=== PATIENT | male | born 1965 | race Caucasian/White ===

== ENCOUNTER 2024-01-19 08:18 | Day surgery (SDC) | payer MEDICARE ==
[2024-01-16 17:07] VITALS: BMI 31.1
[2024-01-19] MEDS: IV FLUID CONTINUATION 1,000 ML IV ONE (08:36)
[2024-01-19 08:49] VITALS: TEMP 97
[2024-01-19] MEDS: LACTATED RINGERS 1,000 ML IV SCH (08:56)
[2024-01-19] MEDS ORDERED: LIDOCAINE 1% INJ 10MG/ML (20 ML MDV) ONE (09:17)
[2024-01-19] MEDS ORDERED: PROPOFOL 10 MG/ML 20 ML VIAL IV ONE (09:17)
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
--- NOTE | 2024-01-19 09:42 | P.OP ---
Date of Procedure: 01/19/24 Preoperative Diagnosis: Weight loss, abdominal pain, anorexia Postoperative Diagnosis: Large paraesophageal hiatal hernia Diverticulosis Procedure(s) Performed: EGD Anesthesia: MAC Surgeon: Elvis Dc Pathology: other (Antrum, esophagus) Condition: stable Disposition: PACU Description of Procedure: The patient was placed on the endoscopy table in the lateral position. He received IV sedation. The gas was placed oropharynx passed in the esophagus and stomach. The scope was placed through the pylorus. The first and second portion of the duodenum appeared normal. Scope was then brought back to the antrum this was minimal Flaim. A biopsy performed. Scope was then retroflexed the patient had a large paraesophageal hiatal hernia. The GE junction was at 37 cm. The distal esophagus was minimal Flaim. A biopsy performed. The proximal esophagus appeared normal. Coffey was withdrawn for the patient. Next digital rectal exam was performed. This revealed no abnormalities. Flexible colonoscope was then placed patient anus and passed throughout the entire colon. The ileocecal valve was visualized. The cecum, ascending and transverse colon appeared normal. In the descending sigmoid colon there is mild diverticular changes. The scope was then brought back to the rectum this appea red normal. Scope withdrawn for the p patient.
[2024-01-19 09:46] VITALS: RESP 14
[2024-01-19 10:10] VITALS: BP 96/68; PULSE 69
== END 2024-01-19 10:32 | disposition home or self-care (01) ==
LOC: ORWHC2ENDO 08:18
PROVIDERS: ATTEND Surgery
CPT/HCPCS: 43239; 45378; 88305

== ENCOUNTER 2024-02-15 09:45 | Day surgery (SDC) | payer MEDICARE ==
[2024-02-15 11:18] LABS: Basophils % (A) 0 %; Eosinophils # (A) 0.2 k/uL (0-0.7); Eosinophils % (A) 2 %; HCT 44.6 % (39.0-53.0); HGB 14.7 gm/dL (13.0-17.5); Lymphocytes # (A) 1.7 k/uL (1.0-4.8); Lymphocytes % (A) 18 %; MCH 30.4 pg (25.0-35.0); MCV 91.9 fL (80.0-100.0); Mean Platelet Volume 6.8; Monocytes # (A) 0.8 k/uL (0-1.0); Monocytes % (A) 8 %; Neutrophils # (A) 6.5 k/uL (1.3-7.7); Neutrophils % (A) 70 %; Platelet Count 345 k/uL (150-450); RBC 4.86 m/uL (4.30-5.90); RDW 12.9 % (11.5-15.5); WBC 9.4 k/uL (3.8-10.6)
[2024-02-15] MEDS: LACTATED RINGERS 1,000 ML IV SCH (11:30)
[2024-02-15] MEDS: ONDANSETRON 4 MG/2 ML VIAL IVP ONE (11:31)
[2024-02-15] MEDS: ACETAMINOPHEN TAB 500 MG TAB PO PRN (11:31)
[2024-02-15] MEDS: DEXAMETHASONE SOD PHOSPHATE 4 MG/ML 1 ML VIAL IV ONE (11:31)
[2024-02-15 11:33] LABS: ALT 24 U/L (4-49); African American GFR (CKD) 84 (>60 ml/min/1.73 sqM); Albumin 4.2 g/dL (3.5-5.0); Anion Gap 5 mmol/L; Blood Urea Nitrogen 18 mg/dL (9-20); Calcium 8.8 mg/dL (8.4-10.2); Carbon Dioxide 24 mmol/L (22-30); Chloride 107 mmol/L (98-107); Glucose 104 mg/dL (74-99); Non-African American GFR(CKD) 73 (>60 ml/min/1.73 sqM); Sodium 136 mmol/L (137-145); Total Bilirubin 0.9 mg/dL (0.2-1.3); Total Protein 6.9 g/dL (6.3-8.2)
[2024-02-15] MEDS: IV FLUID CONTINUATION 1,000 ML IV ONE (11:34)
[2024-02-15 11:36] LABS: AST 23 U/L (17-59); Alkaline Phosphatase 67 U/L (38-126); Potassium 4.6 mmol/L (3.5-5.1)
[2024-02-15] MEDS: HEPARIN SODIUM,PORCINE 5,000 UNIT/ML 1 ML VIAL SQ PRN (11:37)
[2024-02-15] MEDS ORDERED: GLYCOPYRROLATE 0.2 MG/ML 2 ML VIAL ONE (13:11)
[2024-02-15] MEDS ORDERED: MIDAZOLAM 2 MG/2 ML VIAL ONE (13:11)
[2024-02-15] MEDS ORDERED: KETOROLAC 15 MG/ML 1 ML VIAL ONE (13:11)
[2024-02-15] MEDS ORDERED: NEOSTIGMINE 1 MG/ML 10 ML VIAL ONE (13:11)
[2024-02-15] MEDS ORDERED: LIDOCAINE 1% INJ 10MG/ML (20 ML MDV) ONE (13:11)
[2024-02-15] MEDS ORDERED: fentaNYL (PF) 50 MCG/ML 2 ML AMP ONE (13:11)
[2024-02-15] MEDS ORDERED: SUCCINYLCHOLINE CHLORIDE 200 MG/10 ML VIAL IV ONE (13:11)
[2024-02-15] MEDS ORDERED: ePHEDrine 50 MG/ML 1 ML VIAL ONE (13:11)
[2024-02-15] MEDS ORDERED: PROPOFOL 10 MG/ML 20 ML VIAL IV ONE (13:11)
[2024-02-15] MEDS ORDERED: ROCURONIUM 10 MG/ML (5 ML VIAL) IV ONE (13:11)
[2024-02-15] MEDS: LIDOCAINE 1% INJ 10MG/ML (20 ML MDV) SQ ONE (13:49)
[2024-02-15] MEDS: LACTATED RINGERS 1,000 ML IV ONE (14:01)
[2024-02-15] MEDS ORDERED: ONDANSETRON 4 MG/2 ML VIAL IVP PRN (14:15)
--- NOTE | 2024-02-15 14:15 | P.OP ---
Date of Procedure: 02/15/24 Preoperative Diagnosis: Paraesophageal hiatal hernia with intrathoracic stomach Postoperative Diagnosis: Same Procedure(s) Performed: Laparoscopic pair of paraesophageal hernia with [place] bio a mesh Anesthesia: VINICIUS Surgeon: Elvis Dc Estimated Blood Loss (ml): 5 Pathology: none sent Condition: stable Disposition: PACU Description of Procedure: The patient was placed on the operating table in the supine position. She received general anesthesia. She was then placed in dorsal lithotomy position. Her abdomen was prepped and draped in the usual sterile fashion. The skin incision sites were anesthetized with 1% local Xylocaine. The skin was incised in the left periumbilical area with an 11 scalpel. Using a 5 mm blade was trocar under direct visitation the peritoneal cavity was entered. And then insufflated. After adequate insufflation the laparoscope was placed back into the peritoneal cavity. Next a 5 mm trocar was placed in the right epigastric and then the right lateral position. Another 5 mm trochars placed in the left lateral position. Another 5 mm trocar placed in the left epigastric position. And the original left periumbilical trocar was exchanged for a 10 mm trocar. The left lateral lobe liver was retracted. The patient had a large parae sophageal hiatal hernia. Using the Harmonic scissors the crural defect was dissected in the Harmonic scissors were used to dissect the hiatal hernia sac. The fundus of the stomach was completely mobilized by using the Harmonic scissors to divide short gastric vessels. The stomach was reduced into the peritoneal cavity. The crura was dissected with the Harmonic scissors. And then the crural repair was performed using 2-0 Ethibond suture. The [place] bio A mesh was then placed over top of the repair and secured with 2-0 Ethibond suture. The abdomen was irrigated there is no bleeding seen. The trochars are withdrawn. Skin was closed interrupted 3-0 Monocryl suture. Dermabond was applied. Patient tolerated procedure well and was sent to recovery in stable condition.
[2024-02-15] MEDS: HYDROmorphone 0.5 MG/0.5 ML SYRINGE IVP PRN (14:34)
[2024-02-15] MEDS: D5-0.45% NACL WITH KCL 20MEQ/L 1,000 ML IV SCH (18:41)
[2024-02-15] MEDS: METOCLOPRAMIDE 5 MG/ML 2 ML VIAL IVP SCH (18:41)
[2024-02-15] MEDS: HYDROmorphone 1 MG/ML 1 ML SYRINGE IVP PRN (18:41)
[2024-02-15] MEDS: FAMOTIDINE 20 MG/2 ML VIAL IV SCH (22:05)
[2024-02-16 08:22] VITALS: BP 120/74; PULSE 78; RESP 18; TEMP 97.9
[2024-02-16] MEDS ORDERED: BACLOFEN 10 MG TAB PO PRN (08:50)
[2024-02-16] MEDS: VENLAFAXINE HCL ER 37.5 MG CAP PO SCH (10:57)
[2024-02-16] MEDS: lisinopriL 20 MG TAB PO SCH (10:58)
[2024-02-16] MEDS: ATORVASTATIN 80 MG TAB PO SCH (10:58)
[2024-02-16] MEDS: ENOXAPARIN 40 MG/0.4 ML SYRINGE SQ SCH (10:59)
[2024-02-16] MEDS: ASPIRIN 81 MG PO SCH (10:59)
--- NOTE | 2024-02-16 13:07 | P.DS ---
Providers Expected date of discharge: 02/16/24 Attending physician: Elvis Dc Consults: 02/15/24 14:15 Consult Physician Routine Consulting Provider: Whitley Elam Consult Reason/Comments: Medical management Do you want consulting provider notified?: Yes Primary care physician: Whitley Elam Hospital Course: Discharge diagnosis 1. Paraesophageal hiatal hernia with intrathoracic stomach Hospital course This is a 59-year-old male with a known hiatal hernia with intrathoracic stomach. He is status post laparoscopic repair of paraesophageal hiatal hernia with mesh. Patient is tolerating diet. His pain is controlled. He is ambulating. He is afebrile. He is stable for discharge. Please refer to chart for any further details. Physician [employer] note has been reviewed by physician. Signing provider agrees with the documented findings, assessment, and plan of care. Patient Condition at Discharge: Stable Plan - Discharge Summary Discharge Rx Participant: Yes New Discharge Prescriptions: New oxyCODONE HCL [OxyIR] 5 mg PO Q6H PRN 3 Days #10 tab PRN Reason: Pain Acetaminophen Tab [Tylenol] 650 mg PO Q6H #30 tab Docusate [Colace] 100 mg PO BID #20 capsule Ibuprofen [Motrin] 600 mg PO Q6HR PRN #40 tab PRN Reason: Pain Docusate [Colace] 100 mg PO BID #20 capsule Ibuprofen [Motrin] 600 mg PO Q6HR PRN #40 tab PRN Reason: Pain HYDROcodone/APAP 5-325MG [[place] 5-325] 1 tab PO Q6HR PRN #10 tab PRN Reason: Pain Venlafaxine HCl ER [Effexor XR] 75 mg PO DAILY 30 Days #30 cap Continue Baclofen [Lioresal] 10 mg PO TID PRN PRN Reason: Pain Atorvastatin [Lipitor] 80 mg PO DAILY lisinopriL [Prinivil] 20 mg PO QAM Aspirin 81 mg PO DAILY Discontinued Venlafaxine HCl ER [Effexor Xr] 37.5 mg PO QAM Discharge Medication List Aspirin 81 mg PO DAILY 01/16/24 [History] Atorvastatin [Lipitor] 80 mg PO DAILY 01/16/24 [History] Baclofen [Lioresal] 10 mg PO TID PRN 01/16/24 [History] lisinopriL [Prinivil] 20 mg PO QAM 01/16/24 [History] Acetaminophen Tab [Tylenol] 650 mg PO Q6H #30 tab 02/15/24 [Rx] Docusate [Colace] 100 mg PO BID #20 capsule 02/15/24 [Rx] Ibuprofen [Motrin] 600 mg PO Q6HR PRN #40 tab 02/15/24 [Rx] oxyCODONE HCL [OxyIR] 5 mg PO Q6H PRN 3 Days #10 tab 02/15/24 [Rx] Docusate [Colace] 100 mg PO BID #20 capsule 02/16/24 [Rx] HYDROcodone/APAP 5-325MG [[place] 5-325] 1 tab PO Q6HR PRN #10 tab 02/16/24 [Rx] Ibuprofen [Motrin] 600 mg PO Q6HR PRN #40 tab 02/16/24 [Rx] Venlafaxine HCl ER [Effexor XR] 75 mg PO DAILY 30 Days #30 cap 02/16/24 [Rx] Follow up Appointment(s)/Referral(s): Elvis Dc MD [STAFF PHYSICIAN] - 02/23/24 1:20 pm Patient Instructions/Handouts: *Surgery [facility] - (Anesthesia) Discharge Instructions Outpatient Surgery, Laparoscopic Hiatal Hernia Repair (DC) Discharge Disposition: HOME SELF-CARE
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
== END 2024-02-16 13:53 | disposition home or self-care (01) ==
LOC: OR 09:45 → 4SSUR 14:14 → OR 02-16 13:53
PROVIDERS: ATTEND Surgery
DX: K44.9 Diaphragmatic hernia without obstruction or gangrene (principal); E78.5 Hyperlipidemia, unspecified; F32.A Depression, unspecified; G89.29 Other chronic pain; I10 Essential (primary) hypertension; K21.9 Gastro-esophageal reflux disease without esophagitis; F10.90 Alcohol use, unspecified, uncomplicated; F12.90 Cannabis use, unspecified, uncomplicated; Z79.82 Long term (current) use of aspirin; Z79.899 Other long term (current) drug therapy; Z86.73 Personal history of transient ischemic attack (TIA), and cerebral infarction without residual deficits; Z90.49 Acquired absence of other specified parts of digestive tract; Z79.1 Long term (current) use of non-steroidal anti-inflammatories (NSAID)
CPT/HCPCS: 80053; 85025; 43282; C1781; J1644; J1100; J2765 ×2; J0690 ×2; J2405; J1650; J2003; J3490 ×2; J1171 ×2